=== PATIENT | female | born 1945 | race Caucasian/White ===

== ENCOUNTER 2017-12-19 18:40 | Emergency (ER) | END 2017-12-19 19:10 | disposition home or self-care (01) ==

== ENCOUNTER 2019-02-19 03:05 | Emergency (ER) | payer OTHER ==
[~2019-02-19] VITALS: Ht 160 cm; Wt 76.8 kg
[~2019-02-19 03:05] MED LIST: AMLO-147; ASPI-465; BENA40TA56; CARV25TA79; CRES20; CYCL10TA7 PO; HYDR-3498 PO; HYDR-4011 PO; IBUP-1561 PO; INSU100V19 INJ; INSU100V23 INJ; LEVO75CA; MTF1000T; OXYB5TAB7; RANI150T35 PO; SERT50TA PO; TRAM50TA2; WHEE1EAC12 MC
[2019-02-19 03:10] VITALS: Ht 160 cm; Wt 76.8 kg
--- NOTE | 2019-02-19 03:58 | ERD ---
ER Documentation Chief Complaint Chief Complaint R SIDE RIB PAIN S/P FALL LAST NIGHT HPI 73-year-old female presents for evaluation of right rib cage pain. Patient had a mechanical fall, and now endorses pain to this area, she had no head trauma, no neck trauma. She takes aspirin, but is otherwise not on anticoagulants. She had no loss of consciousness, no shortness of breath ROS All systems reviewed and are negative except as per history of present illness. Medications Home Meds Active Scripts Hydrocodone/Acetaminophen ([place] 5-325 Tablet) 1 Each Tablet, 1 TAB PO Q6H PRN for PAIN, #7 TAB Prov:SUZANNA BEE PA-C 12/19/17 Ranitidine Hcl* (Zantac*) 150 Mg Tablet, 150 MG PO BID PRN for EPIGASTRIC PAIN, #20 TAB Prov:SUZANNA BEE PA-C 12/19/17 Cyclobenzaprine Hcl* (Cyclobenzaprine Hcl*) 10 Mg Tablet, 10 MG PO TID, #15 TAB Prov:SUZANNA BEE PA-C 12/19/17 Ibuprofen* (Motrin*) 400 Mg Tab, 400 MG PO Q6, #20 TAB Prov:SUZANNA BEE PA-C 18 Wheelchair (with Foot Rest)* (Wheelchair (with Foot Rest)*) 1 Each Dme, 1 EACH [facility] DIRECTED, #1 DME 0 Refills Prov:NELLIE MCKINNEY MD 02/26/15 Ibuprofen* (Motrin*) 400 Mg Tab, 400 MG PO Q6, #20 TAB Prov:NELLIE MCKINNEY MD 02/26/15 Hydrocodone Bit-Acetaminophen* ([place]*) 5-325 Mg Tab, 1 TAB PO Q6 PRN for PAIN, #20 TAB Prov:NELLIE MCKINNEY MD 02/26/15 Reported Medications Insulin Regular, Human* (Novolin R*) 100 U/Ml Vial, INJ TID 06/10/11 Amlodipine Besylate* (Amlodipine Besylate*) 10 Mg Tablet, qam 06/10/11 Tramadol HCl (Tramadol HCl) 50 Mg Tablet, DIALY 06/10/11 Levothyroxine Sodium (Tirosint) 75 Mcg Capsule, DAILY 06/10/11 Rosuvastatin Calcium* (Crestor*) 20 Mg Tablet, daily 06/10/11 Insulin Glargine,Hum.rec.anlog (Lantus) 100 U/Ml Vial, 30 UNIT INJ QHS, 0 Refills 02/25/10 Oxybutynin Chloride* (Ditropan*) 5 Mg Tablet 02/25/10 Sertraline Hcl* (Zoloft*) 50 Mg Tablet, 2 TAB PO DAILY, 0 Refills 02/25/10 Carvedilol* (Carvedilol*) 25 Mg Tablet 02/25/10 Benazepril Hcl* (Benazepril Hcl*) 40 Mg Tablet 02/25/10 Aspirin (Adult Low Dose Aspirin) 81 Mg Tablet. 02/25/10 Metformin* (Glucophage*) 1,000 Mg Tablet 02/25/10 Allergies Allergies: Coded Allergies: No Known Allergy (Verified , 02/18/14) PMhx/Soc History of Surgery: Yes (HYSTERECTOMY, OVARIES REMOVAL) Anesthesia Reaction: No Hx Neurological Disorder: Yes (stroke) Hx Respiratory Disorders: No Hx Psychiatric Problems: Yes (DEPRESSION) Hx Miscellaneous Medical Probl: Yes (DMII) Hx Alcohol Use: No Hx Substance Use: No Hx Tobacco Use: No Physical Exam Vitals Vital Signs Date Temp Pulse Resp B/P (MAP) Pulse Ox O2 O2 Flow FiO2 Time Delivery Rate 02/19/19 97.6 69 18 202/91 97 03:10 (128) Physical Exam Const: No acute distress Head: Atraumatic Eyes: Normal Conjunctiva ENT: Normal External Ears, Nose and Mouth. Neck: Full range of motion. No meningismus. Resp: Clear to auscultation bilaterally Cardio: Regular rate and rhythm, no murmurs Chest wall: There is point tenderness over the right lower chest wall, there is no ecchymosis, lungs are clear bilaterally Abd: Soft, non tender, non distended. Normal bowel sounds Skin: No petechiae or rashes Back: No midline or flank tenderness Ext: No cyanosis, or edema Neur: Awake and alert Psych: Normal Mood and Affect Results 24 hrs Current Medications Medications Dose Sig/[place] Start Time Status Last (Trade) Ordered Route PRN Stop Time Admin Dose Reason Admin Ibuprofen 600 mg ONCE ONCE 02/19/19 DC 02/19/19 (Motrin) PO 04:00 02/19/19 04:20 04:01 Procedures/MDM This 73-year-old female presents ration of mechanical fall. On exam patient was not noted to be in any respiratory distress, she had no abdominal pain, no evidence of head or neck trauma. Her x-ray showed a right posterior rib fracture, otherwise no other findings. Patient provided with pain control, as well as inspiratory spirometer. At discharge patient was in no distress. Departure Diagnosis: Primary Impression: Rib pain AVE MURPHY MD Feb 19, 2019 03:58
[2019-02-19] MEDS ORDERED: IBUPROFEN 600 MG TAB PO ONE (04:00)
[2019-02-19] MEDS ORDERED: HYDR-4011 PO (04:56)
[2019-02-19 05:22] VITALS: BP 174/77; PULSE 65; RESP 18
== END 2019-02-19 05:24 | disposition home or self-care (01) ==
LOC: E/R 03:05
DX: R07.81 Pleurodynia (principal); E11.9 Type 2 diabetes mellitus without complications; Z79.4 Long term (current) use of insulin; Z79.82 Long term (current) use of aspirin
CPT/HCPCS: 71045; 71100